=== PATIENT | male | born 1965 | race Caucasian/White ===

== ENCOUNTER 2017-07-20 15:46 | Emergency (ER) | payer SELFPAY ==
[~2017-07-20] VITALS: Ht 193 cm; Wt 115.0 kg
[~2017-07-20 15:46] MED LIST: CORTI10A AD
[2017-07-20 15:57] VITALS: BP 149/70; PULSE 70; RESP 15; TEMP 98.7; O2SAT 95
[2017-07-20] MEDS ORDERED: CYCL10TA PO (16:55)
[2017-07-20] MEDS ORDERED: NORC5TAB PO (16:55)
--- NOTE | 2017-07-20 16:55 | PD ---
HPI . Back injury Chief Complaint: Back/ Neck Pain or Injury Time Seen by Provider: 16:41 Travel History International Travel<30 days: No Contact w/Intl Traveler<30days: No Traveled to known affect area: No History of Present Illness HPI This patient presents with chief complaint of a back injury. He states that he was helping a friend move a couple of days ago. They were lifting something heavy and he twisted his back and lifted at the same time causing pain in the back. He states that the pain became worse yesterday. Pain is exacerbated by being on his feet. He rates his pain is 5/10. He denies any neurological complaints such as pain in his legs, weakness in his legs, saddle anesthesia, bowel or bladder incontinence. He does state that his back pain is exacerbated when he has a bowel movement. [facility] Past Medical History Medical History: Denies Significant Hx Diminished Hearing: No Tetanus Vaccination: Unknown Past Surgical History Genitourinary Surgery: Yes (SCAR TISSUE REMOVED FROM URETHRA) Social History Alcohol Use: Yes (OCCASIONAL) Tobacco Use: No Substance Use: Yes ("WEED") Allergies-Medications (Allergen,Severity, Reaction): Coded Allergies: No Known Allergies (Unverified , 07/02/15) Reported Meds & Prescriptions Reported Meds & Active Scripts Active Cortisporin Otic Solution (Neomycin/Polymyxin/Hydrocortisone) 10 Ml Soln 4 Drop AD QID Review of Systems Except as stated in HPI: all other systems reviewed are Neg General / Constitutional: No: Fever, Chills Genitourinary: No: Incontinence Neurologic: No: Weakness, Focal Abnormalities, Paresthesia, Incontinence Physical Exam Narrative GENERAL: The patient is sitting in the chair bent at the waist watching a video on his telephone. SKIN: warm/dry. HEAD: Normocephalic. Atraumatic. EYES: Pupils equal and round. No scleral icterus. No injection or drainage. ENT: No nasal bleeding or discharge. Mucous membranes pink and moist. NECK: Trachea midline. Full range of motion without pain.. RESPIRATORY: No accessory muscle use. MUSCULOSKELETAL: He seems to be moving his back without significant pain. He has no tenderness to percussion of the lumbar spine. He has tenderness in the left paraspinous muscles. NEUROLOGICAL: Awake and alert. No obvious cranial nerve deficits. Motor grossly within normal limits. Normal speech. PSYCHIATRIC: Appropriate mood and affect; insight and judgment normal. Data Data Last Documented VS Vital Signs Date Time Temp Pulse Resp B/P (MAP) Pulse Ox O2 Delivery O2 Flow Rate FiO2 07/20/17 15:57 98.7 70 15 149/70 (96) 95 MDM Medical Decision Making Medical Screen Exam Complete: Yes Emergency Medical Condition: Yes Differential Diagnosis Differential diagnosis of back injury includes but is not limited to contusion, muscle strain, ligamentous strain, compression fracture, spinous process fracture Narrative Course This patient presents complaining with a twisting injury to his low back a few days ago. His exam is compatible with a low back strain in that he is tender in the left paraspinous muscles. He does not have any signs or symptoms worrisome for epidural abscess or cauda equina. He will be discharged home with symptomatic treatment. I have queried [email or web address] and he has had no scheduled prescriptions filled within the last year in the state [facility]. Diagnosis Primary Impression: Low back strain Qualified Codes: S39.012A - Strain of muscle, fascia and tendon of lower back , initial encounter Patient Instructions: General Instructions, Low Back Strain (DC) Med/Other Pt SpecificInfo: Prescription(s) given Scripts Cyclobenzaprine (Flexeril) 10 Mg Tab 10 MG PO TID for Muscle Spasm, #15 TAB 0 Refills Prov: Tanya Jane MD 07/20/17 Hydrocodone-Acetaminophen ([place]) 5 Mg-325 Mg Tab 1 TAB PO Q4H Y for PAIN, #12 TAB 0 Refills Prov: Tanya Jane MD 07/20/17 Disposition: 01 DISCHARGE HOME Condition: Stable Tanya Jane MD Jul 20, 2017 16:55
== END 2017-07-20 17:26 | disposition home or self-care (01) ==
LOC: NEPD 15:46
DX: S39.012A Strain of muscle, fascia and tendon of lower back, initial encounter (principal); X50.1XXA Overexertion from prolonged static or awkward postures, initial encounter
CPT/HCPCS: 99283